=== PATIENT | male | born 1965 | race Caucasian/White ===

== ENCOUNTER 2022-12-25 12:33 | Emergency (ER) | payer BC ==
[~2022-12-25] VITALS: Ht 188 cm; Wt 108.9 kg
--- NOTE | 2022-12-25 12:35 | NUR ---
REceived pt 57yrs male came by [facility]lle S/P JG THIS MORNING AWAKE AND ALERT C/O PAIN ON FOR HEAD DRESSING INTACT AND DRY
--- NOTE | 2022-12-25 12:55 | NUR ---
SEEN BY DR. ACHARYA
--- NOTE | 2022-12-25 13:00 | NUR ---
TO CT SCAN
[2022-12-25] MEDS ORDERED: TDAP [DIPH/PERTUSSIS/TET] 0.5 ML VIAL IM ONE ×2 (13:30→13:36)
[2022-12-25] MEDS ORDERED: IBUPROFEN 600 MG TABLET PO ONE (13:30)
[2022-12-25] MEDS ORDERED: IBUPROFEN 600 MG TABLET ONE (13:35)
--- NOTE | 2022-12-25 13:55 | NUR ---
LABD AT [facility] SIDE OFFICER (DAVID) [id number]
--- NOTE | 2022-12-25 14:13 | NUR ---
CLEAN WOUND AND DRESSING APPLED ON LT FORHEAD
[2022-12-25] MEDS ORDERED: IBUP-1953 PO (14:48)
--- NOTE | 2022-12-25 15:05 | NUR ---
IV removed. Catheter intact and site benign. Pressure and 4x4 applied to site. No bleeding noted.
--- NOTE | 2022-12-25 15:06 | NUR ---
Patient discharged to home in stable condition. Written and verbal after care instructions given. Patient verbalizes understanding of instruction.
[2022-12-25 15:19] VITALS: BP 141/84
== END 2022-12-25 15:20 | disposition home or self-care (01) ==
LOC: ER 13:35
DX: S00.81XA Abrasion of other part of head, initial encounter (principal); S70.311A Abrasion, right thigh, initial encounter; S80.812A Abrasion, left lower leg, initial encounter; R51.9 Headache, unspecified; V43.52XA Car driver injured in collision with other type car in traffic accident, initial encounter; W22.11XA Striking against or struck by driver side automobile airbag, initial encounter; Y93.89 Activity, other specified; Y92.89 Other specified places as the place of occurrence of the external cause; Y99.8 Other external cause status
CPT/HCPCS: 70450-TC; 90715